=== PATIENT | female | born 1980 | race African-American/Black ===

== ENCOUNTER 2017-01-13 09:51 | Emergency (ER) | payer OTHER ==
[~2017-01-13 09:51] MED LIST: NO MEDICATIONS
== END 2017-01-13 10:55 | disposition home or self-care (01) ==
LOC: CED 09:51 → CFTX 09:51
DX: K04.7 Periapical abscess without sinus (principal); F17.210 Nicotine dependence, cigarettes, uncomplicated; Z88.0 Allergy status to penicillin; Z88.1 Allergy status to other antibiotic agents
CPT/HCPCS: 99283